=== PATIENT | female | born 1985 | race Two or more races ===

== ENCOUNTER 2018-01-15 11:20 | Inpatient (IN) | payer OTHER ==
[~2018-01-15] VITALS: Ht 165.1 cm; Wt 80.7 kg
[2018-01-15 15:00] VITALS: BP 129/80
[2018-01-15] MEDS ORDERED: Hydromorphone 0.5mg/0.5ml inj IVPB PRN (15:15)
[2018-01-15] MEDS ORDERED: HYDROMORPHONE IVPB PRN ×2 (15:45)
[2018-01-15] MEDS ORDERED: D5W IVPB PRN ×2 (15:45)
[2018-01-15] MEDS ORDERED: CARISOPRODOL350 MG ORAL (18:00)
[2018-01-15] MEDS ORDERED: HYDROCODON-ACE1 EA13 (18:03)
[2018-01-15] MEDS: NS w/KCl 20mEq 1,000 ML IV SCH (18:44)
--- NOTE | 2018-01-15 19:45 | Consultation ---
DATE OF CONSULTATION: 01/15/2018 CONSULTING PHYSICIAN: Elsa Walters M.D. CHIEF COMPLAINT: Postoperative pain, right leg pain. HISTORY OF PRESENT ILLNESS: The patient is a 32-year-old woman, well known to me from prior lumbar decompressive surgeries in 2014 and 2016. She had a recent posterior lumbar redo decompressive surgery at L4-L5 level with interspinous fixation on 01/13/2018. Initially, she did well. She states that over the last 12 to 24 hours, she has experienced worsening right leg pain. She was taken by her family to emergency room at a [facility]. I spoke to the [facility] emergency room physician. A CT scan of the lumbar spine was obtained. CT scan was significant for postoperative changes. She was transferred at my request to [facility] and also at the request of the ER physician for further evaluation. She is also admitted under Dr. Aguilar for medical comanagement. She had a Doppler examination of the right lower extremity, which showed evidence of acute thrombus in the anterior tibial calf vein without involvement of the common femoral/popliteal or posterior tibial veins. Also the greater saphenous vein was within normal limits bilaterally. She is being admitted now for pain management and also management of the right lower extremity thrombosed vein. She states that her right leg has a lot of pain when she tries to put weight on it. She does not report any intervening injuries. PAST MEDICAL HISTORY: She is otherwise healthy. She denies history of hypertension or diabetes. ALLERGIES: The patient has history of allergic reaction with itchiness to vancomycin. She was given Decadron. She still feels Decadron/dexamethasone with itchiness, otherwise, she does not have true allergy to the Decadron. She has received Decadron in the past without any incident. FAMILY HISTORY: Noncontributory. SOCIAL HISTORY: The patient is . She has a supportive family. PHYSICAL EXAMINATION: GENERAL: She is in no acute distress. SPINE: Examination of the lumbar spine shows a clean, dry, and intact lumbar incision and dressing without evidence of erythema or evidence of drainage. Paralumbar muscles are supple. NEUROLOGIC: Lower extremity strength is grossly 5/5. She is in bed and not weightbearing at this point. She has pain in th erught hip on palpation an d range of motion testing She has mild weakness in the right anterior tibialis, which is consistent with her preoperative examination. Sensory examination shows a dysesthesia in the right lower extremity. LABORATORY AND DIAGNOSTIC DATA: Imaging studies reviewed. The CT scan of the lumbar spine dated 01/15/2018 personally. This study was performed at the [facility] Emergency room. Study significant for interspinous fusion device at the L4-L5 level. Hardware in excellent position without evidence of hardware failure or fracture dislocations. There is evidence of bone graft material within the interspinous barrel and over the facets bilaterally. The fat graft was also visualized in the epidural space. There is no evidence of significant stenosis of the central canal. Spinal alignment is otherwise maintained. DIAGNOSTIC IMPRESSION: 1. Status post lumbar decompressive surgery and interspinous fusion, L4-L5. 2. Right lower extremity neuropathic pain, now with evidence of acute thrombus, not involving the deep venous system. 3. Postoperative pain. 4. Right hip pain DISCUSSION: I discussed the findings with the patient and her family in detail. I have spent at least 40 minutes of [id number] time at bedside discussing the condition with her. I also discussed the case with Dr. Aguilar, who will be the income tax administrator following the patient. At this point, due to her postop status , we will hold off on anticoagulation. She will have repeat ultrasound examination to evaluate the condition of the acute thrombus. We will hold off on physical therapy at this point. She will be treated with pain medications intravenously for adequate pain control. We will institute bowel care measures as well. I will follow up with the patient while in the hospital and monitor progress. I will follow up regarding her right hip/leg pain. Elsa Walters M.D. DR: AIDEN JOB#: [id number] CC: HARJINDER
[2018-01-15 20:00] VITALS: BP 113/66
[2018-01-15] MEDS ORDERED: Milk of Magnesia 30ml Ud ORAL PRN ×2 (20:15→20:30)
[2018-01-15] MEDS ORDERED: Docusate 250mg cap ORAL SCH (20:15)
--- NOTE | 2018-01-15 22:25 | Diagnostic Imaging Report ---
APPROVED REPORT CPT Code: 34171 Present Symptoms Comments: RIGHT LEG PAIN. Past History Right RIGHT LEG: Venous imaging reveals acute thrombus in the calf vein (anterior tibial). Imaging also reveals patency of the common femoral, popliteal and calf veins (posterior tibial and peroneal). The greater saphenous vein is within normal limits. LEFT LEG: Venous imaging reveals a patent deep venous system. There is no evidence of thrombus within the femoral, popliteal or tibial segments. The greater saphenous vein is also within normal limits. Doppler indicates normal spontaneous flow within these segments.
[2018-01-16] VITALS: BP 110/67
[2018-01-16 04:00] VITALS: BP 107/69
[2018-01-16 08:00] VITALS: BP 107/69
--- NOTE | 2018-01-16 08:00 | History and Physical Report ---
DATE OF ADMISSION: 01/15/2018 REASON FOR ADMISSION: Postoperative pain. HISTORY OF PRESENT ILLNESS: The patient was admitted to the hospital for postoperative pain. She is status post complex lumbar spine surgery. She is status post two lumbar decompression surgeries in the past and subsequently underwent three days ago a complex spine surgery. She has been having pain that is not controlled by her pain medication and went to [facility]. She was seen by Neurology at [facility] and Dr. Walters was subsequently called in and the patient was transferred for further evaluation to our hospital. She denies any nausea or vomiting. She had some laboratories done. INR 0.9. Lipase is 89. test was negative. She was seen by Neurology and was given methylprednisolone 125 mg Once. she was given Dilaudid. She was given Zofran and she was given another Dilaudid. She was subsequently transferred to [facility] for further evaluation. While being in [facility], she underwent a venous Doppler, which shows new imaging revealed patent deep vein system of the leg and also reveals patency of the common femoral, popliteal calf veins, posterior tibial and peroneal greater saphenous vein has been normal . There was venous imaging which revealed acute thrombus in the calf, DVT of anterior tibial. She was noted to have isolated calf DVT. PAST MEDICAL HISTORY: Obesity, lumbar radiculopathy, polyarthralgias. FAMILY HISTORY: Noncontributory. SOCIAL HISTORY: She does not smoke, abuse alcohol or drugs. PHYSICAL EXAMINATION: VITAL SIGNS: Temperature is 98, pulse of 93, respiration 20, blood pressure 129/80, pulse oximetry 97% saturation. GENERAL: A well-developed, well-nourished, obese woman, in no acute distress. HEENT: Normocephalic. NECK: No JVD. HEART: S1 and S2. LUNGS: Clear to auscultation bilaterally. ABDOMEN: Soft. EXTREMITIES: No clubbing or cyanosis. MUSCULOSKELETAL: The patient is unable to dorsiflex both ankles. The patient is able to bend both knees. IMPRESSION: 1. Status post complex spine fusion. 2. Postoperative pain. 3. Isolated calf thrombosis, anterior tibial. This is not a deep vein thrombosis. PLAN: Okay to ambulate. The following will be done. Monitor the patient closely. Pain control. She will require to have DVT prophylaxis, but she has isolated calf thrombosis. I will ask her to ambulate. scd on the other leg. Within 48 hours, we will get repeat venous Dopplers of both legs to make sure she does not have progression of isolated calf thrombosis. Monitor the patient closely. She has no signs of pulmonary embolus. She is not short of breath. Case was discussed with the patient at length. Case was discussed with Dr. Walters of the spine surgery. Joel Aguilar M.D. DR: Aneesh JOB#: [id number] CC: HARJINDER
[2018-01-16] MEDS: Docusate 250mg cap ORAL SCH (09:21)
[2018-01-16 12:00] VITALS: BP 113/62
[2018-01-16] MEDS: HYDROMORPHONE IVPB PRN ×2 (12:02→17:32)
[2018-01-16] MEDS: D5W IVPB PRN ×2 (12:02→17:32)
--- NOTE | 2018-01-16 13:57 | General Progress Note ---
Assessment/Plan Status Narrative s/p complex spine surgery doing ok has pain has isolated calf venous thrombosis Assessment/Plan plan repeat venous douplex paincontrol with dialudid erik merida. Subjective Date patient seen: Jan 16, 2018 Time patient seen: 13:53 Constitutional: Reports: no symptoms HEENT: Reports: no symptoms Cardiovascular: Reports: no symptoms Allergies: Coded Allergies: DEXAMETHASONE (Verified Allergy, Unknown, 01/15/18) VANCOMYCIN (Verified Allergy, Unknown, 01/15/18) Objective Last 24 Hour Vital Signs Date Time Temp Pulse Resp B/P (MAP) Pulse Ox O2 Delivery O2 Flow Rate FiO2 01/16/18 12:00 97.6 95 20 113/62 97 Room Air 97.6 01/16/18 08:00 97.4 71 18 107/69 98 Room Air 97.4 01/16/18 04:00 97.3 72 18 107/69 99 Room Air 97.3 01/16/18 00:00 97.6 84 18 110/67 97 97.6 01/15/18 20:00 98.4 99 18 113/66 96 98.4 01/15/18 15:00 98.0 93 20 129/80 97 Room Air 98.0 Intake and Output 01/15/18 01/16/18 18:59 06:59 Intake Total 340 ml 740 ml Balance 340 ml 740 ml Intake Oral 340 ml 240 ml IV Total 500 ml # Voids 2 2 Height (Feet): 5 Height (Inches): 5.00 Weight (Pounds): 178 General Appearance: WD/WN Neck: other - no jvd Cardiovascular: normal rate, regular rhythm Respiratory/Chest: lungs clear Abdomen: soft Edema: other - no edema Joel Aguilar MD Jan 16, 2018 13:57
[2018-01-16] MEDS: NS w/KCl 20mEq 1,000 ML IV SCH (14:14)
--- NOTE | 2018-01-16 15:20 | General Progress Note ---
Progress Note Progress Note S/ Ambulated with PT but has "a lot of pain in th eright hip and right leg with cramping." O/ vs: Last 24 Hour Vital Signs Date Time Temp Pulse Resp B/P (MAP) Pulse Ox O2 Delivery O2 Flow Rate FiO2 01/16/18 12:00 97.6 95 20 113/62 97 Room Air 97.6 01/16/18 08:00 97.4 71 18 107/69 98 Room Air 97.4 01/16/18 04:00 97.3 72 18 107/69 99 Room Air 97.3 01/16/18 00:00 97.6 84 18 110/67 97 97.6 01/15/18 20:00 98.4 99 18 113/66 96 98.4 Alert and oriented x 4. Family at bedside Lower extremity motor is 5/5 in th eproximal and distal muscle groups. patient i stender over the right hip with palpation Pain in right hip with External rotation. No obvious hip dislocation SCD on left LE A/P 1. R hip and leg pain. Bursitis vs internal derangement of R hip 2. S/p L4-5 interspinous fusion 3. R LE neuropathic pain P/: 1. Neurontin and pain medications 2. R hip MRI and Hip X-rays 3. Family and Patient updated Continue with PT THOMAS HUANG Jan 16, 2018 15:20
[2018-01-16 16:00] VITALS: BP 124/82
[2018-01-16 20:00] VITALS: BP 136/81
[2018-01-17] VITALS: BP 123/59
[2018-01-17] MEDS: HYDROMORPHONE IVPB PRN ×2 (00:27→14:44)
[2018-01-17] MEDS: D5W IVPB PRN ×2 (00:27→14:44)
[2018-01-17 04:00] VITALS: BP 130/61
[2018-01-17 08:00] VITALS: BP 119/79
[2018-01-17] MEDS: Docusate 250mg cap ORAL SCH (09:00)
--- NOTE | 2018-01-17 09:28 | Diagnostic Imaging Report ---
Indication: Hip pain Technique: 2 views of the left hip Comparison: none Findings: No acute fractures. No dislocations. The joint spaces are preserved. There is an L4-5 lumbar disc prosthesis Impression: No acute process This agrees with the preliminary interpretation provided overnight by [facility] service.
--- NOTE | 2018-01-17 09:29 | Diagnostic Imaging Report ---
Indication: Right hip pain Technique: 2 views of the right hip Comparison: none Findings: No acute fractures. No dislocations. Joint space is preserved. There is a L4-5 lumbar disc prosthesis noted Impression: No acute process This agrees with the preliminary interpretation provided overnight by [facility] service.
[2018-01-17] MEDS: NS w/KCl 20mEq 1,000 ML IV SCH (10:03)
[2018-01-17 12:00] VITALS: BP 132/82
[2018-01-17] MEDS ORDERED: LORazepam Inj 2mg/ml 1ml IVP SCH (15:48)
[2018-01-17 16:00] VITALS: BP 120/79
--- NOTE | 2018-01-17 17:12 | General Progress Note ---
Progress Note Progress Note Neurosurgery S/ Complains of right hip pain with radiation into th eright leg. Ambulated for short distance with PT. I hve hd multiple communictions with nursing throughout the day. Pt is claustrophobic and the hip MRI has been delayed because of patient's anxiety/claustrophobia O/ vs: Last 24 Hour Vital Signs Date Time Temp Pulse Resp B/P (MAP) Pulse Ox O2 Delivery O2 Flow Rate FiO2 01/17/18 12:00 98.3 86 20 132/82 98 Room Air 98.3 01/17/18 08:00 98.8 92 21 119/79 97 Room Air 98.8 01/17/18 04:00 97.5 78 18 130/61 100 Room Air 97.5 01/17/18 00:00 97.7 79 18 123/59 97 Room Air 97.7 01/16/18 20:00 97.7 82 18 136/81 98 Room Air 97.7 Alert, orineted x4 Motor exm shows 5/5 strength to manual testing in the upper and lower extremities. Patient experiences pin with internal and external rotation of the right hip Sensation shows mid dysesthesias in the right lateral thigh and leg. Lumbar incision is clean/dry and intact Patient has tenderness over the right hip joint with palpation Imaging: Repeat doppler: shows no evidence of acute thrombus A/ R hip and lower extremity pain R LE post-op radiculitis Pain mediations and Gabapentin R hip MRI pending I spoke with patient and her mother at bedside at length. Patient has a normal neurological exam in her extremities. She has subjective right-sided leg pain and hip pin. The hip X-rays do not reveal and obvious pathology. The right hip MRI is pending. She will need supportive care and follow up with pain management for possible lumbar epidurals three weeks aftre surgery is her pain remains. In the mean time, will manage her pain with [place], soma and gabapentin. Plan of care was discussed with patient her mom (with help of a contact lens blocker and cutter) and nursing. i provided my cell phone to patient and her family in case of any issues/ questions. . TOHMAS HUANG Jan 17, 2018 17:12
--- NOTE | 2018-01-17 17:42 | General Progress Note ---
Progress Note Progress Note Neurosurgery 01-17-18 2nd note I reviewed the MRI of the right Hip with a radiologist The study does not show any acute abnormalities or joint effusion. I discussed the findings with the patient and her mom at bedside and her sister over the phone. Plan will be to manage her pain. Disposition and discharge care instructions were reviewed with the family and nursing I provided my direct # to patient's mom THOMAS HUANG Jan 17, 2018 17:42
[2018-01-17] MEDS ORDERED: HYDROmorphone 4mg tab ORAL SCH (18:15)
[2018-01-17] MEDS: HYDROmorphone 2mg tab ORAL SCH ×2 (18:39→22:33)
[2018-01-17 19:58] VITALS: BP 124/85
--- NOTE | 2018-01-17 21:50 | General Progress Note ---
Assessment/Plan Assessment/Plan S/P COMPLEX LUMBAR SPINE FUSION HAS PAIN PLAN PT OT INCREASE NEURONTIN 600 MG PO TID FLEXIROL 10 BID ISOLATED CALF VENOUS THROMBOSI S REPEAT VENOUS DOUPLEX WAS READ NEGATIVE CAN AMBULATE WITH MAIL HANDLERS SUPERVISOR. Subjective Date patient seen: Jan 17, 2018 Time patient seen: 21:43 Allergies: Coded Allergies: DEXAMETHASONE (Verified Allergy, Unknown, 01/15/18) VANCOMYCIN (Verified Allergy, Unknown, 01/15/18) Subjective has pain no fever no chills no chest pain no diplopia no ches tpain Objective Last 24 Hour Vital Signs Date Time Temp Pulse Resp B/P (MAP) Pulse Ox O2 Delivery O2 Flow Rate FiO2 01/17/18 19:58 98.7 103 17 124/85 96 Room Air 98.7 01/17/18 16:00 97.7 95 20 120/79 98 Room Air 97.7 01/17/18 12:00 98.3 86 20 132/82 98 Room Air 98.3 01/17/18 08:00 98.8 92 21 119/79 97 Room Air 98.8 01/17/18 04:00 97.5 78 18 130/61 100 Room Air 97.5 01/17/18 00:00 97.7 79 18 123/59 97 Room Air 97.7 Intake and Output 01/16/18 01/17/18 19:00 07:00 Intake Total 1250 ml 851 ml Balance 1250 ml 851 ml Intake Oral 750 ml 240 ml IV Total 500 ml 611 ml # Voids 1 2 NO JVD CTA s1,s2, rrr soft no cluibbing right leg able to dorsiflex ankle able to bend the knee Height (Feet): 5 Height (Inches): 5.00 Weight (Pounds): 178 Joel Aguilar MD Jan 17, 2018 21:50
[2018-01-18] VITALS: BP 115/76
[2018-01-18] MEDS: HYDROmorphone 2mg tab ORAL SCH ×2 (02:13→05:46)
[2018-01-18 04:00] VITALS: BP 110/72
[2018-01-18] MEDS ORDERED: HYDROmorphone 4mg tab ORAL PRN (06:16)
--- NOTE | 2018-01-18 07:00 | Diagnostic Imaging Report ---
EXAM: MR Right Lower Extremity Without Intravenous Contrast, Hip CLINICAL HISTORY: PAIN TECHNIQUE: Multiplanar magnetic resonance images of the right hip without intravenous contrast. COMPARISON: Right hip radiograph from 2 days ago FINDINGS: Artifacts: Susceptibility artifact in posterior element of the lower lumbar spine, suggest fusion hardware. TENDONS: Flexors: Unremarkable. Extensors/Hamstring: Unremarkable. Abductors: Unremarkable. Adductors: Unremarkable. Rotators: Unremarkable. Fluid: No significant joint effusion. Labrum: Unremarkable. Cartilage: Unremarkable. Bones/joints: Small amount of marrow edema of right ilium in the region of sacroiliac joint best seen on series 6 image 4, nonspecific. Bilateral hips have normal alignment. No significant marrow edema in proximal femurs. Soft tissues: Small amount of intramuscular edema of bilateral gluteus cas. Moderate amount of overlying subcutaneous soft tissue edema. Bowel: Visualized bowel are within normal limits. Bladder: Urinary bladder is over distended. Reproductive: Anteverted uterus and bilateral ovaries are within normal limits. IMPRESSION: Soft tissue edema of bilateral gluteal regions and small amount of marrow edema of right ilium in the region of sacroiliac joint are nonspecific. Infectious versus traumatic etiologies should be considered.
[2018-01-18 08:00] VITALS: BP 120/75
[2018-01-18] MEDS ORDERED: Cyclobenzaprine 10mg Tab ORAL SCH (09:00)
[2018-01-18] MEDS: Docusate 250mg cap ORAL SCH (09:12)
--- NOTE | 2018-01-18 10:37 | General Progress Note ---
Progress Note Progress Note Neurosurgery S/ Doing much better. Right leg pain almost resolved. Ambulated several times by herself with a walker. at bedside. Had BM. Voiding without difficulty O/ Vs: Last 24 Hour Vital Signs Date Time Temp Pulse Resp B/P (MAP) Pulse Ox O2 Delivery O2 Flow Rate FiO2 01/18/18 08:00 97.8 78 20 120/75 98 Room Air 97.8 01/18/18 06:45 97.6 01/18/18 04:00 97.6 86 17 110/72 97 Room Air 97.6 01/18/18 02:13 98.0 01/18/18 00:00 98.0 105 18 115/76 97 Room Air 98.0 01/17/18 22:33 98.7 01/17/18 19:58 98.7 103 17 124/85 96 Room Air 98.7 01/17/18 16:00 97.7 95 20 120/79 98 Room Air 97.7 01/17/18 12:00 98.3 86 20 132/82 98 Room Air 98.3 Alert, oriented smiling Moves all extremities well Lower extremity 5/5 bilaterally Sensory mild decrease R L5 dermatome Right hip range of motion improved [place] walking in the hallway with PT...Normal gait No limping Doing much better R LE post-radiculitis improved THOMAS HUANG Jan 18, 2018 10:37
[2018-01-18 11:56] VITALS: BP 124/84
[2018-01-18 16:00] VITALS: BP 120/75
[2018-01-18] MEDS ORDERED: NEURONTIN300 MG ORAL (16:36)
[2018-01-18] MEDS ORDERED: MAGNESIUM OXID250 MG PO (16:37)
[2018-01-18] MEDS ORDERED: ASPIRIN-LOW81 MG ORAL (16:37)
--- NOTE | 2018-01-18 19:00 | Discharge Summary ---
DATE OF ADMISSION: 01/16/2018 DATE OF DISCHARGE: 01/18/2018 DISCHARGE DIAGNOSIS: 1. History of lumbar interspinous fusion at L4-L5 level. 2. Postoperative right lower extremity radiculitis. HISTORY OF PRESENT ILLNESS: Refer to the chart for History and Physical. HOSPITAL COURSE: The patient was admitted from an outside emergency room on 01/16/2018 directly to the floor. She has undergone interspinous fusion on 01/14/2018. She had an initial uneventful postoperative course, who was actually discharged home. She presented to outside emergency room on the 01/16/2018 because of right-sided lower extremity pain and weakness. CT scan was obtained in the emergency room. I spoke to the emergency room physician and the patient was transferred to [facility] for further evaluation. In hospital, she was found to have a right-sided hip pain and right lower extremity radicular symptoms. The MRI of the right hip was obtained, which showed no evidence of articular disease. She was started on gabapentin, muscle relaxants, and pain killers along with magnesium sulfate. She has had significant improvement and is ambulating independently and also uses a walker for ambulation for long distances. Her right lower extremity neurological examination is intact except for mild sensory loss in the right lateral L5 distribution. I spoke to the family extensively. Understandably, they were upset initially due to the patient's pain. She is happy smiling and is ambulating with minimal right lower extremity pain. Detailed instructions were discussed with the patient and her family and nursing. DISPOSITION: Home. MEDICATIONS: Include [place], [place], magnesium oxide, and baby aspirin as prescribed. CLINICAL FINDINGS: Included a small acute thrombus in the superficial venous system. A follow up venous ultrasound showed resolution of the clot. She will be started on baby aspirin for prophylactic reasons. DIET: Low carb high-protein diet is recommended. ACTIVITY LEVEL: The patient is instructed to wear a lumbar brace, which is already dispensed to her when out of bed. DISCHARGE FOLLOWUP: Discharge followup with Dr. Walters in a week. She already has been scheduled with the office. I also provided the patient and her mom and family with my direct phone number for followup questions. CONDITION: Stable. CONSULTATIONS: Internal Medicine with Dr. Joel Aguilar. Elsa Walters M.D. DR: ANDREW JOB#: [id number] CC:
== END 2018-01-18 17:15 | disposition home or self-care (01) | DRG 948 ==
LOC: 3E 14:31
DX: G89.18 Other acute postprocedural pain (principal); I82.441 Acute embolism and thrombosis of right tibial vein; Z98.1 Arthrodesis status; Z88.1 Allergy status to other antibiotic agents; G62.9 Polyneuropathy, unspecified; Z88.8 Allergy status to other drugs, medicaments and biological substances
CPT/HCPCS: 73502; 87081; 93970